=== PATIENT | female | born 1965 | race Caucasian/White ===

== ENCOUNTER 2021-11-21 10:06 | Day surgery (SDC) | payer OTHER, SELFPAY ==
[~2021-11-21] VITALS: Ht 160 cm; Wt 76.2 kg
[2021-11-21] MEDS ORDERED: SIMETHICONE 40 MG/0.6 ML ML ONE (11:30)
[2021-11-21] MEDS ORDERED: fentaNYL CITRATE/PF 100 MCG/2 ML AMP ONE (11:31)
[2021-11-21] MEDS: MIDAZOLAM HCL 5 MG/5 ML VIAL ONE ×3 (12:34→12:37)
[2021-11-21 16:54] VITALS: BP_SYST 130
== END 2021-11-21 13:50 | disposition home or self-care (01) ==
LOC: SDS 10:06 → SMU 10:07 → SDS 13:50
PROVIDERS: ATTEND Surgery
DX: R10.13 Epigastric pain (principal); K29.50 Unspecified chronic gastritis without bleeding; Z20.822 Contact with and (suspected) exposure to COVID-19
CPT/HCPCS: 36415; 43239; 82962; 87426; 88305; 88312; 88313; G0378; J2250; J3010; U0003

== ENCOUNTER 2022-08-03 11:03 | Day surgery (SDC) | payer OTHER ==
[~2022-08-03] VITALS: Ht 160 cm; Wt 74.8 kg
[~2022-08-03 11:03] MED LIST: CEFAZOLIN SOD 1 GM in D5W 50 ML IV ONE
[2022-08-03] MEDS ORDERED: KETOROLAC TROMETHAMINE 30 MG VIAL IVP ONE (12:39)
[2022-08-03] MEDS ORDERED: NS 1000 ML IV.SOLN IV ONE (12:39)
[2022-08-03] MEDS ORDERED: DEXAMETHASONE SOD PHOSPHATE 4 MG/ML VIAL IVP ONE (12:39)
[2022-08-03] MEDS ORDERED: fentaNYL CITRATE 250 MCG/5 ML AMP IV ONE (12:39)
[2022-08-03] MEDS ORDERED: ROCURONIUM BROMIDE 10 MG/ML (ZEMURON) IV ONE (12:39)
[2022-08-03] MEDS ORDERED: ONDANSETRON HCL 4 MG/2 ML VIAL IVP ONE (12:39)
[2022-08-03] MEDS ORDERED: LR 1,000 ML IV.SOLN IV ONE (12:39)
[2022-08-03] MEDS ORDERED: HYDROmorphone 2 MG/ML VIAL IVP ONE (12:39)
[2022-08-03] MEDS ORDERED: PROPOFOL 200MG/ 20ML VIAL (DIPRIVAN) IV ONE (12:39)
[2022-08-03] MEDS ORDERED: SUCCINYLCHOLINE CHLORIDE 20 MG/ML(QUELICIN) IVP ONE (12:39)
[2022-08-03] MEDS ORDERED: SUGAMMADEX SODIUM 200 MG/2 ML VIAL IV ONE (12:39)
[2022-08-03] MEDS ORDERED: NS IRRIG SOLN 1000 ML IR ONE (12:39)
[2022-08-03] MEDS ORDERED: BUPIVACAINE /EPINEPHRINE/PF 0.25% 30 ML VIAL INJ ONE (12:39)
[2022-08-03] MEDS ORDERED: HYDROmorphone 2 MG/ML VIAL IVP PRN (14:15)
[2022-08-03] MEDS ORDERED: HYDROmorphone 1 MG/ML INJ. CARTRIDGE IVP PRN ×2 (14:15)
[2022-08-03] MEDS ORDERED: HYDROmorphone 1 MG/ML INJ. CARTRIDGE ONE (14:54)
[2022-08-03] MEDS ORDERED: ACETAMINOPHEN I.V. 1000 MG 100 ML IV ONE ×2 (15:33→15:45)
[2022-08-03] MEDS ORDERED: HYDROcodone/ACETAMIN 10-325 MG TAB ONE (16:51)
[2022-08-03] MEDS ORDERED: HYDROcodone/ACETAMIN 5-325 MG TAB (NORCO/ VICODIN) PO ONE (17:00)
[2022-08-03 17:58] VITALS: BP_SYST 120
== END 2022-08-03 17:46 | disposition home or self-care (01) ==
LOC: SDS 11:03 → SMU 11:04 → SDS 17:46
PROVIDERS: ATTEND Surgery
DX: K80.10 Calculus of gallbladder with chronic cholecystitis without obstruction (principal); K21.9 Gastro-esophageal reflux disease without esophagitis; E11.40 Type 2 diabetes mellitus with diabetic neuropathy, unspecified; Z79.899 Other long term (current) drug therapy; Z20.822 Contact with and (suspected) exposure to COVID-19
CPT/HCPCS: 36415; 47563; 82962; 74300; 88304; U0003; J3490 ×2; J0690; J1100; J1885; J2405; J2704; J0330; J3010; J1170 ×2; Q9967; J7060; J7120; J7030; C1727; J0131